=== PATIENT | female | born 1985 | race Two or more races ===

== ENCOUNTER 2021-07-19 17:05 | Emergency (ER) | payer OTHER ==
[~2021-07-19] VITALS: Ht 157.5 cm; Wt 53.6 kg
[2021-07-19 18:01] LABS: URINE BILIRUBIN - DIPSTICK NEGATIVE (NEGATIVE); URINE BLOOD DIPSTICK LARGE (NEGATIVE); URINE COLOR YELLOW; URINE GLUCOSE - DIPSTICK NEGATIVE (NEGATIVE); URINE KETONE NEGATIVE (NEGATIVE); URINE PH 6.5 (4.5-8.0); URINE PROTEIN - DIPSTICK TRACE mg/dL (NEG-TRACE); URINE UROBILINOGEN - DIPSTICK 0.2 E.U./dL (0.2)
[2021-07-19 18:02] LABS: URINE LEUK ESTERASE MODERATE (NEGATIVE); URINE NITRITE - DIPSTICK NEGATIVE (Negative)
[2021-07-19 18:07] LABS: URINE SQUAMOUS EPITHELIAL CELL FEW EPI/hpf (0-FEW); URINE WBC 50-100 WBC/hpf (0-5)
[2021-07-19] MEDS ORDERED: MACROBID100 M1 PO (18:25)
[2021-07-19] MEDS ORDERED: PYRIDIUM200 MG PO (18:25)
[2021-07-19 18:40] VITALS: BP 108/68
== END 2021-07-19 18:40 | disposition home or self-care (01) | DRG 690 ==
LOC: ED 17:05
PROVIDERS: Emergency Medicine
DX: N39.0 Urinary tract infection, site not specified (principal)